=== PATIENT | female | born 1965 | race Caucasian/White ===

== ENCOUNTER 2017-03-16 22:53 | Emergency (ER) | payer MEDICARE, MEDICAID ==
[2016-03-08 09:56] VITALS: BMI 25.1
[~2017-03-16 22:53] MED LIST: BAYER CHEWABLE81 MG PO; CHANTIX 1 MG TAB1 MG PO; LYRICA300 MG PO; PAXIL20 MG PO; TOPROL XL25 MG PO; TYLENOL #4 W/CO1 TAB PO; ULTRAM50 MG PO; VALIUM5 MG PO
[2017-03-16 23:39] LABS: BASOPHILS 0.1 % (0-2); EOSINOPHILS 1.5 % (0-7); HEMATOCRIT 43.9 % (36.0-48.0); HEMOGLOBIN 14.2 g/dL (12-16); IMMATURE GRANULOCYTES 0.1 % (0-5); LYMPHOCYTES 29.7 % (15-50); MCH 27.6 pg (26.0-34.0); MCHC 32.3 g/dL (31.0-37.0); MCV 85.2 fL (80.0-100.0); MEAN PLATELET VOLUME 10.2 fL (7.4-10.4); MONOCYTES 9.5 % (2-11); NEUTROPHILS 59.1 % (40-80); PLATELET COUNT 321 10x3/uL (130-400); RBC 5.15 10x6/uL (4.00-5.40); RDW 14.3 % (11.5-14.5); WBC 7.5 10x3/uL (4.8-10.8)
[2017-03-17 00:25] LABS: ALBUMIN 3.1 g/dL (3.4-5.0); ANION GAP 14.8 mmol/L (8-16); BILIRUBIN - TOTAL 0.2 mg/dL (0.2-1.3); CALCIUM 8.7 mg/dL (8.5-10.1); POTASSIUM - SERUM 3.8 mmol/L (3.5-5.1); PROTEIN - SERUM 7.6 g/dL (6.4-8.2)
== END 2017-03-17 03:20 | disposition home or self-care (01) ==
LOC: D.ER 22:53
PROVIDERS: Emergency Medicine
DX: R10.9 Unspecified abdominal pain (principal); I10 Essential (primary) hypertension

== ENCOUNTER → 2017-03-19 12:49 | Outpatient (CLI) | payer MEDICARE, MEDICAID ==
[2016-03-08 09:56] VITALS: BMI 25.1
== END | disposition home or self-care (01) ==
LOC: D.NM 12:49
DX: R10.11 Right upper quadrant pain (principal)

== ENCOUNTER → 2017-10-04 14:43 | Outpatient (CLI) | payer MEDICARE, MEDICAID ==
[2016-03-08 09:56] VITALS: BMI 25.1
== END | disposition home or self-care (01) ==
LOC: D.RAD 13:02
DX: M79.672 Pain in left foot (principal)

== ENCOUNTER 2019-09-21 15:53 | Emergency (ER) | payer MEDICARE, MEDICAID ==
[~2019-09-21] VITALS: Ht 165.1 cm; Wt 72.7 kg
[2019-09-21 15:58] VITALS: Ht 165.1 cm; Wt 72.7 kg
[2019-09-21 16:31] LABS: BASOPHILS 0 % (0-2); EOSINOPHILS 0.2 % (0-7); HEMATOCRIT 47.7 % (36.0-48.0); HEMOGLOBIN 15.7 g/dL (12-16); IMMATURE GRANULOCYTES 0.4 % (0-5); LYMPHOCYTES 12.7 % (15-50); MCH 29.8 pg (26.0-34.0); MCHC 32.9 g/dL (31.0-37.0); MCV 90.5 fL (80.0-100.0); MEAN PLATELET VOLUME 10.4 fL (7.4-10.4); MONOCYTES 5.7 % (2-11); PLATELET COUNT 319 10x3/uL (130-400); RBC 5.27 10x6/uL (4.00-5.40); RDW 14.6 % (11.5-14.5); WBC 8.4 10x3/uL (4.8-10.8)
[2019-09-21 16:33] LABS: APPEARANCE CLEAR (CLEAR); BILIRUBIN NEGATIVE (NEGATIVE); COLOR YELLOW (YELLOW); GLUCOSE NEGATIVE (NEGATIVE); KETONE NEGATIVE (NEGATIVE); NITRITE NEGATIVE (NEGATIVE); PROTEIN TRACE mg/dL (NEGATIVE); SPECIFIC GRAVITY 1.025 (1.005-1.020); UROBILINOGEN NORMAL (NORMAL)
[2019-09-21 16:40] LABS: CALC OSMOLALITY 284 mosm/kg (275-300); CARBON DIOXIDE 19.6 mmol/L (21.0-32.0); CHLORIDE - SERUM 108 mmol/L (98-107); CREATININE - SERUM 0.9 mg/dL (0.6-1.3); GLUCOSE 102 mg/dL (74-106); POTASSIUM - SERUM 3.8 mmol/L (3.5-5.1); SODIUM 142 mmol/L (136-145); UREA NITROGEN 18 mg/dL (7-18); eGFR NON AFRICAN AMERICAN 69 mL/min (90-120)
[2019-09-21 16:49] LABS: ALBUMIN 3.4 g/dL (3.4-5.0); ALKALINE PHOSPHATASE 131 U/L (46-116); ALT (SGPT) 21 U/L (10-68); BILIRUBIN - TOTAL 0.43 mg/dL (0.2-1.3); PROTEIN - SERUM 7.7 g/dL (6.4-8.2); TROPONIN-I < 0.017 ng/mL (0.000-0.060)
[2019-09-21] MEDS ORDERED: ZOFRAN8 MG PO (17:36)
[2019-09-21] MEDS ORDERED: TORADOL10 MG PO (17:36)
[2019-09-21 17:50] VITALS: BP 110/74
== END 2019-09-21 17:52 | disposition home or self-care (01) ==
LOC: D.ER 15:53
PROVIDERS: Family Medicine
DX: R10.32 Left lower quadrant pain (principal); R11.2 Nausea with vomiting, unspecified; I10 Essential (primary) hypertension; Z72.0 Tobacco use

== ENCOUNTER 2020-12-08 21:21 | Emergency (ER) | payer MEDICARE, MEDICAID ==
[~2020-12-08] VITALS: Ht 165.1 cm; Wt 68.2 kg
[~2020-12-08 21:21] MED LIST changes: +ALDACTONE100 MG PO; +CHRONULAC30 ML PO; +FLORAJEN3 CAPS460 MG PO; +FOLIC ACID1 MG PO; +HYDROCODON-ACE1 EA10 PO; +K-TAB10 MEQ PO; +LASIX40 MG PO; +NICODERM CQ1 EAC3 TRANSDERM; +TORADOL10 MG PO; +VITAMIN B-1100 M1 PO; +XIFAXAN550 MG PO; +ZOFRAN8 MG PO
[2020-12-08 21:22] VITALS: Ht 165.1 cm; Wt 68.2 kg
[2020-12-08 21:52] LABS: BASOPHILS 0.8 % (0-2); EOSINOPHILS 1.2 % (0-7); HEMATOCRIT 35.1 % (36.0-48.0); HEMOGLOBIN 11.6 g/dL (12-16); IMMATURE GRANULOCYTES 0.7 % (0-5); LYMPHOCYTE ABS# 2.23 10x3/uL (1.18-3.74); LYMPHOCYTES 37.4 % (15-50); MCH 30.8 pg (26.0-34.0); MCV 93.1 fL (80.0-100.0); MEAN PLATELET VOLUME 11.3 fL (7.4-10.4); MONOCYTES 14.3 % (2-11); NEUTROPHIL ABS# 2.72 10x3/uL (1.56-6.13); NEUTROPHILS 45.6 % (40-80); PLATELET COUNT 305 10x3/uL (130-400); RBC 3.77 10x6/uL (4.00-5.40); RDW 21.8 % (11.5-14.5)
[2020-12-08 21:56] LABS: BILIRUBIN NEGATIVE (NEGATIVE); KETONE NEGATIVE (NEGATIVE); NITRITE NEGATIVE (NEGATIVE); UROBILINOGEN 12 mg/dL (< 2)
[2020-12-08 21:57] LABS: WHITE CELLS - URINE 0-5 HPF (0-4)
[2020-12-08 21:58] LABS: BACTERIA FEW HPF (NONE SEEN); SQUAMOUS EPITHELIAL 0-5 HPF (0-4)
[2020-12-08 22:03] LABS: CALC OSMOLALITY 273 mosm/kg (275-300); CALCIUM 7.8 mg/dL (8.5-10.1); CARBON DIOXIDE 26.1 mmol/L (21.0-32.0); CHLORIDE - SERUM 104 mmol/L (98-107); CREATININE - SERUM 0.8 mg/dL (0.6-1.3); GLUCOSE 105 mg/dL (74-106); POTASSIUM - SERUM 4.1 mmol/L (3.5-5.1); SODIUM 136 mmol/L (136-145); UREA NITROGEN 18 mg/dL (7-18); eGFR NON AFRICAN AMERICAN 78 mL/min (90-120)
[2020-12-08 22:12] LABS: ALBUMIN 1.7 g/dL (3.4-5.0); ALKALINE PHOSPHATASE 543 U/L (30-120); ALT (SGPT) 72 U/L (10-68); AMYLASE - SERUM 123 U/L (25-115); BILIRUBIN - TOTAL 3.79 mg/dL (0.2-1.3); LIPASE 239 U/L (73-393); PROTEIN - SERUM 7.7 g/dL (6.4-8.2); TROPONIN-I < 0.017 ng/mL (0.000-0.060)
[2020-12-08] MEDS ORDERED: TORADOL10 MG PO (22:51)
[2020-12-08 23:48] VITALS: BP 130/74
== END 2020-12-08 23:49 | disposition home or self-care (01) ==
LOC: D.ER 21:21
PROVIDERS: Family Medicine
DX: B15.9 Hepatitis A without hepatic coma (principal); R10.11 Right upper quadrant pain; I10 Essential (primary) hypertension; Z72.0 Tobacco use